=== PATIENT | female | born 1940 | race African-American/Black ===

== ENCOUNTER 2017-08-06 20:46 | Inpatient (IN) | payer OTHER ==
[~2017-08-06] VITALS: Ht 157.5 cm; Wt 120.0 kg
[2017-08-06] MEDS ORDERED: IBUP-2070 PO (21:09)
[2017-08-06] MEDS ORDERED: ATEN100T PO (21:09)
[2017-08-06] MEDS ORDERED: ASPI81 PO (21:09)
[2017-08-06] MEDS ORDERED: HYDR25TA PO (21:09)
[2017-08-06] MEDS ORDERED: BENA20 PO (21:09)
[2017-08-06 21:41] LABS: BASOPHILS % (AUTO) 1.1 % (0.0-2.0); HEMATOCRIT 38.3 % (36-46); HEMOGLOBIN 12.9 g/dL (12.0-16.0); LYMPHOCYTES # (AUTO) 3.5 K/uL (1.0-4.8); LYMPHOCYTES % (AUTO) 43.3 % (22.0-44.0); MEAN CORPUSCULAR HEMOGLOBIN 30.3 pg (26.0-34.0); MEAN CORPUSCULAR HGB CONC 33.6 G/dL (31.0-37.0); MEAN CORPUSCULAR VOLUME 90 fL (80-100); MONOCYTES # (AUTO) 0.5 K/uL (0.1-1.0); MONOCYTES % (AUTO) 6.7 % (2.0-9.0); NEUTROPHILS # (AUTO) 3.9 K/uL (1.8-7.7); NEUTROPHILS % (AUTO) 47.9 % (40.0-70.0); PLATELET COUNT (AUTO) 256 K/uL (150-450); RED BLOOD CELL COUNT(AUTO) 4.25 MIL/uL (4.00-5.20); RED CELL DISTRIBUTION WIDTH 15.4 % (11.5-14.5); WHITE BLOOD COUNT (AUTO) 8.1 K/uL (4.5-11.0)
[2017-08-06 21:53] LABS: ANION GAP 8 mmol/L (8-16); CALCIUM, TOTAL 9.2 mg/dL (8.8-10.5); CARBON DIOXIDE 30 mmol/L (22-29); CHLORIDE 98 mmol/L (98-107); CREATININE 0.85 mg/dL (0.60-1.30); GLOMERULAR FILTR. RATE CALC > 60 mL/min (>60); POTASSIUM 3.4 mmol/L (3.5-5.1); SODIUM SERUM 136 mmol/L (136-145); UREA NITROGEN, BLOOD 15 mg/dL (7-18)
[2017-08-06] MEDS ORDERED: ASPIRIN 81 MG CHEWABLE TABLET PO ONE (22:00)
[2017-08-06 22:01] LABS: ALANINE AMINOTRANSFERASE 19 U/L (12-78); ALBUMIN 3.5 g/dL (3.4-5.0); ASPARTATE AMINOTRANSFERASE 23 U/L (15-37); BILIRUBIN,TOTAL 0.2 mg/dL (0.1-1.0); TOTAL PROTEIN, SERUM 8.1 g/dL (6.4-8.2)
[2017-08-06] MEDS ORDERED: NITROGLYCERIN 0.4 MG SUBLINGUAL TABLET #25 SL ONE (22:15)
[2017-08-06] MEDS ORDERED: NITROGLYCERIN 2% (1 GM=INCH) PACKET TP ONE (22:30)
[2017-08-07] VITALS (8 sets, daily range): BP systolic 100–138; BP diastolic 50–75
[2017-08-07] MEDS ORDERED: ONDANSETRON HCL 4 MG/2 ML VIAL IVP PRN (01:15)
[2017-08-07] MEDS ORDERED: MORPHINE SULFATE 2 MG/ML SYRINGE IVP PRN (01:45)
[2017-08-07 05:16] LABS: APPEARANCE,URINE CLOUDY (CLEAR); GLUCOSE, URINE (UA) NEGATIVE (NEGATIVE); KETONES,URINE NEGATIVE (NEGATIVE); LEUKOCYTE ESTERASE ,URINE TRACE (NEGATIVE); OCCULT BLOOD,URINE TRACE (NEGATIVE); PH,URINE 5.5 (5.0-8.0); PROTEIN,URINE NEGATIVE (NEGATIVE)
[2017-08-07 05:40] LABS: SQUAMOUS EPITHELIAL CELL,UR Moderate /LPF (None Seen)
[2017-08-07 05:59] LABS: BASOPHILS % (AUTO) 0.2 % (0.0-2.0); HEMATOCRIT 37.7 % (36-46); HEMOGLOBIN 12.6 g/dL (12.0-16.0); LYMPHOCYTES # (AUTO) 3.3 K/uL (1.0-4.8); MEAN CORPUSCULAR HEMOGLOBIN 30.1 pg (26.0-34.0); MEAN CORPUSCULAR HGB CONC 33.4 G/dL (31.0-37.0); MEAN CORPUSCULAR VOLUME 90 fL (80-100); MONOCYTES # (AUTO) 0.5 K/uL (0.1-1.0); MONOCYTES % (AUTO) 7.3 % (2.0-9.0); NEUTROPHILS # (AUTO) 3.4 K/uL (1.8-7.7); NEUTROPHILS % (AUTO) 46.5 % (40.0-70.0); PLATELET COUNT (AUTO) 261 K/uL (150-450); RED BLOOD CELL COUNT(AUTO) 4.19 MIL/uL (4.00-5.20); RED CELL DISTRIBUTION WIDTH 15.2 % (11.5-14.5); WHITE BLOOD COUNT (AUTO) 7.3 K/uL (4.5-11.0)
[2017-08-07 06:27] LABS: ANION GAP 10 mmol/L (8-16); CALCIUM, TOTAL 9.1 mg/dL (8.8-10.5); CARBON DIOXIDE 29 mmol/L (22-29); CHLORIDE 101 mmol/L (98-107); CREATININE 0.79 mg/dL (0.60-1.30); GLOMERULAR FILTR. RATE CALC > 60 mL/min (>60); POTASSIUM 3.1 mmol/L (3.5-5.1); SODIUM SERUM 140 mmol/L (136-145); UREA NITROGEN, BLOOD 13 mg/dL (7-18)
[2017-08-07] MEDS: PANTOPRAZOLE SODIUM 40 MG/VIAL IVP SCH (08:07)
[2017-08-07] MEDS: ASPIRIN 81 MG CHEWABLE TABLET PO SCH (08:07)
[2017-08-07] MEDS: BENAZEPRIL HCL 20 MG TABLET PO SCH (08:07)
[2017-08-07] MEDS: ATENOLOL 100 MG TABLET PO SCH (08:13)
[2017-08-07] MEDS ORDERED: HYDROCHLOROTHIAZIDE 25 MG TABLET PO SCH (09:00)
[2017-08-07] MEDS ORDERED: POTASSIUM CHLORIDE 20 MEQ ER TABLET PO PRN (11:00)
[2017-08-07] MEDS ORDERED: POTASSIUM CHL 10 MEQ/WATER 50 ML IV PRN (11:00)
[2017-08-07] MEDS: POTASSIUM CHLORIDE 20 MEQ ER TABLET PO PRN ×2 (11:14→17:34)
[2017-08-07] MEDS: MethylPREDNISolone SOD SUCC 125 MG/2 ML VIAL IVP SCH ×2 (15:53→23:55)
[2017-08-08 00:39] VITALS: BP 133/89
[2017-08-08 04:20] VITALS: BP 143/75
[2017-08-08 06:20] LABS: BASOPHILS % (AUTO) 0.1 % (0.0-2.0); EOSINOPHILS % (AUTO) 0 % (1.0-6.0); HEMATOCRIT 38.1 % (36-46); HEMOGLOBIN 12.7 g/dL (12.0-16.0); LYMPHOCYTES # (AUTO) 1.6 K/uL (1.0-4.8); LYMPHOCYTES % (AUTO) 24.4 % (22.0-44.0); MEAN CORPUSCULAR HEMOGLOBIN 30.3 pg (26.0-34.0); MEAN CORPUSCULAR HGB CONC 33.5 G/dL (31.0-37.0); MEAN CORPUSCULAR VOLUME 91 fL (80-100); MONOCYTES % (AUTO) 0.7 % (2.0-9.0); NEUTROPHILS % (AUTO) 74.8 % (40.0-70.0); PLATELET COUNT (AUTO) 268 K/uL (150-450); RED CELL DISTRIBUTION WIDTH 15.5 % (11.5-14.5); WHITE BLOOD COUNT (AUTO) 6.7 K/uL (4.5-11.0)
[2017-08-08 07:02] LABS: ALANINE AMINOTRANSFERASE 19 U/L (12-78); ALBUMIN 3.2 g/dL (3.4-5.0); ANION GAP 9 mmol/L (8-16); ASPARTATE AMINOTRANSFERASE 23 U/L (15-37); BILIRUBIN,TOTAL 0.3 mg/dL (0.1-1.0); CALCIUM, TOTAL 9.2 mg/dL (8.8-10.5); CARBON DIOXIDE 26 mmol/L (22-29); CHLORIDE 101 mmol/L (98-107); CREATININE 0.85 mg/dL (0.60-1.30); GLOMERULAR FILTR. RATE CALC > 60 mL/min (>60); POTASSIUM 4.1 mmol/L (3.5-5.1); SODIUM SERUM 136 mmol/L (136-145); TOTAL PROTEIN, SERUM 7.9 g/dL (6.4-8.2); UREA NITROGEN, BLOOD 10 mg/dL (7-18)
[2017-08-08 07:46] VITALS: BP 127/54
[2017-08-08] MEDS: MethylPREDNISolone SOD SUCC 125 MG/2 ML VIAL IVP SCH (08:59)
[2017-08-08] MEDS: PANTOPRAZOLE SODIUM 40 MG/VIAL IVP SCH (08:59)
[2017-08-08] MEDS: ASPIRIN 81 MG CHEWABLE TABLET PO SCH (08:59)
[2017-08-08] MEDS: BENAZEPRIL HCL 20 MG TABLET PO SCH (09:00)
[2017-08-08] MEDS: ATENOLOL 100 MG TABLET PO SCH (09:00)
[2017-08-08 11:10] VITALS: BP 121/68
[2017-08-08] MEDS ORDERED: PRED20 PO (11:18)
[2017-08-08] MEDS ORDERED: PRED5 PO (11:19)
[2017-08-08] MEDS ORDERED: PRED10 PO (11:19)
== END 2017-08-08 14:15 | disposition home or self-care (01) | DRG 292 ==
LOC: EMS 20:49 → EDBD 20:49 → 5S 23:12
PROVIDERS: ADMIT Internal Medicine; ATTEND Internal Medicine
DX: I11.0 Hypertensive heart disease with heart failure (principal); J98.11 Atelectasis; Z68.42 Body mass index [BMI] 45.0-49.9, adult; R07.89 Other chest pain; I25.119 Atherosclerotic heart disease of native coronary artery with unspecified angina pectoris; I50.31 Acute diastolic (congestive) heart failure; E66.9 Obesity, unspecified; E87.6 Hypokalemia; D86.9 Sarcoidosis, unspecified; E78.00 Pure hypercholesterolemia, unspecified; E78.5 Hyperlipidemia, unspecified; M77.9 Enthesopathy, unspecified; Z79.82 Long term (current) use of aspirin; Z88.0 Allergy status to penicillin; Z88.8 Allergy status to other drugs, medicaments and biological substances
CPT/HCPCS: 83735; 84132; 93005; 93306; 99285; C9113; J2930

== ENCOUNTER 2020-04-24 05:21 | Inpatient (IN) | payer OTHER ==
[~2020-04-24] VITALS: Ht 160 cm; Wt 119.0 kg
[~2020-04-24 05:21] MED LIST: ASPI-728 PO; ATEN100T92 PO; BENA20TA11 PO; HYDR-1475 PO; IBUP-2070 PO; PRED10 PO; PRED20 PO; PRED5 PO
[2020-04-24] MEDS ORDERED: ONDANSETRON HCL 4 MG/2 ML VIAL IVP ONE (05:45)
[2020-04-24] MEDS ORDERED: SODIUM CHLORIDE 0.9% 1,000 ML IV ONE (05:45)
[2020-04-24 05:48] LABS: BASOPHILS % (AUTO) 0.6 % (0.0-2.0); HEMATOCRIT 37.9 % (36-46); HEMOGLOBIN 12.8 g/dL (12.0-16.0); LYMPHOCYTES # (AUTO) 4.5 K/uL (1.0-4.8); LYMPHOCYTES % (AUTO) 51.2 % (22.0-44.0); MEAN CORPUSCULAR HEMOGLOBIN 30.3 pg (26.0-34.0); MEAN CORPUSCULAR HGB CONC 33.7 G/dL (31.0-37.0); MEAN CORPUSCULAR VOLUME 90 fL (80-100); MONOCYTES # (AUTO) 0.4 K/uL (0.1-1.0); MONOCYTES % (AUTO) 4.1 % (2.0-9.0); NEUTROPHILS # (AUTO) 3.8 K/uL (1.8-7.7); NEUTROPHILS % (AUTO) 43.1 % (40.0-70.0); PLATELET COUNT (AUTO) 255 K/uL (150-450); RED BLOOD CELL COUNT(AUTO) 4.21 MIL/uL (4.00-5.20)
[2020-04-24 06:03] LABS: CREATININE 1.1 mg/dL (0.60-1.30)
[2020-04-24 06:05] LABS: POTASSIUM 2.9 mmol/L (3.5-5.1)
[2020-04-24 06:08] LABS: ALBUMIN 3.1 g/dL (3.4-5.0); BILIRUBIN,TOTAL 0.3 mg/dL (0.1-1.0); CALCIUM, TOTAL 9.1 mg/dL (8.8-10.5); TOTAL PROTEIN, SERUM 7.7 g/dL (6.4-8.2)
[2020-04-24] MEDS ORDERED: POTASSIUM CHLORIDE 20 MEQ ER TABLET PO ONE (06:45)
[2020-04-24] MEDS ORDERED: MAGNESIUM CHLORIDE 64 MG ER TABLET PO ONE (06:45)
[2020-04-24] MEDS ORDERED: 0.9% SODIUM CHLORIDE 10 ML SYRINGE IVP PRN (07:00)
[2020-04-24] MEDS ORDERED: ACETAMINOPHEN 325 MG TABLET PO PRN ×2 (07:00→09:30)
[2020-04-24] MEDS ORDERED: ONDANSETRON HCL 4 MG/2 ML VIAL IVP PRN (07:00)
[2020-04-24 08:31] VITALS: BP 143/74
[2020-04-24] MEDS ORDERED: POTASSIUM CHL 10 MEQ/WATER 50 ML IV PRN (09:30)
[2020-04-24] MEDS ORDERED: POTASSIUM CHLORIDE 20 MEQ ER TABLET PO PRN (09:30)
[2020-04-24 11:16] VITALS: BP 168/97
[2020-04-24] MEDS: ASPIRIN 81 MG CHEWABLE TABLET PO SCH (11:23)
[2020-04-24] MEDS: BENAZEPRIL HCL 20 MG TABLET PO SCH (11:24)
[2020-04-24] MEDS: HEPARIN SODIUM,PORCINE 5,000 UNITS/ML VIAL SQ SCH ×2 (15:44→23:47)
[2020-04-24 15:54] VITALS: BP 152/83
[2020-04-24 19:17] VITALS: BP 130/87
[2020-04-24] MEDS: DOCUSATE SODIUM 100 MG CAPSULE PO SCH (21:00)
[2020-04-24 23:49] VITALS: BP 142/82
[2020-04-25 04:08] VITALS: BP 148/63
[2020-04-25 07:45] VITALS: BP 127/70
[2020-04-25] MEDS: HEPARIN SODIUM,PORCINE 5,000 UNITS/ML VIAL SQ SCH (08:09)
[2020-04-25] MEDS: ASPIRIN 81 MG CHEWABLE TABLET PO SCH (08:09)
[2020-04-25] MEDS: BENAZEPRIL HCL 20 MG TABLET PO SCH (08:09)
[2020-04-25] MEDS: DOCUSATE SODIUM 100 MG CAPSULE PO SCH (08:10)
[2020-04-25] MEDS ORDERED: FAMOTIDINE 20 MG TABLET PO SCH (09:00)
[2020-04-25 11:06] VITALS: BP 126/67
[2020-04-25 11:59] LABS: APPEARANCE,URINE CLEAR (CLEAR); BILIRUBIN,URINE NEGATIVE (NEGATIVE); GLUCOSE, URINE (UA) NEGATIVE (NEGATIVE); KETONES,URINE NEGATIVE (NEGATIVE); LEUKOCYTE ESTERASE ,URINE NEGATIVE (NEGATIVE); NITRATE,URINE NEGATIVE (NEGATIVE); OCCULT BLOOD,URINE NEGATIVE (NEGATIVE); PROTEIN,URINE NEGATIVE (NEGATIVE); UROBILINOGEN,URINE 0.2 mg/dL (<=1.0)
== END 2020-04-25 13:35 | disposition home or self-care (01) | DRG 312 ==
LOC: EMS 05:21 → 5S 06:30
PROVIDERS: ADMIT Internal Medicine; ATTEND Internal Medicine
DX: R55 Syncope and collapse (principal); Z68.42 Body mass index [BMI] 45.0-49.9, adult; D86.9 Sarcoidosis, unspecified; E66.01 Morbid (severe) obesity due to excess calories; E78.00 Pure hypercholesterolemia, unspecified; E87.6 Hypokalemia; I10 Essential (primary) hypertension; R11.2 Nausea with vomiting, unspecified; Z88.0 Allergy status to penicillin; Z88.8 Allergy status to other drugs, medicaments and biological substances; Z79.899 Other long term (current) drug therapy; Z79.82 Long term (current) use of aspirin
CPT/HCPCS: 70450; 83036; 83735; 84132; 93005; J1644; J2405; J7030; 36415-L1; 36415-TC; 71045-TC; 81003-TC

== ENCOUNTER 2020-05-25 18:21 | Emergency (ER) | payer OTHER ==
[~2020-05-25] VITALS: Ht 157.5 cm; Wt 118.9 kg
[~2020-05-25 18:21] MED LIST changes: -ATEN100T92 PO; -HYDR-1475 PO; -IBUP-2070 PO; -PRED10 PO; -PRED20 PO; -PRED5 PO
[2020-05-25 18:58] LABS: BASOPHILS % (AUTO) 0.5 % (0.0-2.0); EOSINOPHILS % (AUTO) 0.2 % (1.0-6.0); HEMATOCRIT 39.9 % (36-46); HEMOGLOBIN 12.9 g/dL (12.0-16.0); LYMPHOCYTES # (AUTO) 1.7 K/uL (1.0-4.8); LYMPHOCYTES % (AUTO) 26.7 % (22.0-44.0); MEAN CORPUSCULAR HEMOGLOBIN 29.3 pg (26.0-34.0); MEAN CORPUSCULAR HGB CONC 32.2 G/dL (31.0-37.0); MEAN CORPUSCULAR VOLUME 91 fL (80-100); MONOCYTES # (AUTO) 0.4 K/uL (0.1-1.0); MONOCYTES % (AUTO) 6.5 % (2.0-9.0); NEUTROPHILS # (AUTO) 4.1 K/uL (1.8-7.7); NEUTROPHILS % (AUTO) 66.1 % (40.0-70.0); PLATELET COUNT (AUTO) 279 K/uL (150-450); RED BLOOD CELL COUNT(AUTO) 4.39 MIL/uL (4.00-5.20); RED CELL DISTRIBUTION WIDTH 16.1 % (11.5-14.5)
[2020-05-25] MEDS ORDERED: MECLIZINE HCL 25 MG TABLET PO ONE (19:00)
[2020-05-25 19:06] LABS: ANION GAP 7 mmol/L (8-16); CALCIUM, TOTAL 9.7 mg/dL (8.8-10.5); CARBON DIOXIDE 29 mmol/L (22-29); CHLORIDE 105 mmol/L (98-107); CREATININE 0.81 mg/dL (0.60-1.30); GLOMERULAR FILTR. RATE CALC > 60 mL/min (>60); GLUCOSE,RANDOM 102 mg/dL (70-110); POTASSIUM 3.8 mmol/L (3.5-5.1); SODIUM SERUM 141 mmol/L (136-145); UREA NITROGEN, BLOOD 11 mg/dL (7-18)
[2020-05-25 19:12] LABS: ALANINE AMINOTRANSFERASE 17 U/L (12-78); ALBUMIN 3.3 g/dL (3.4-5.0); ALKALINE PHOSPHATASE 91 U/L (46-116); ASPARTATE AMINOTRANSFERASE 23 U/L (15-37); BILIRUBIN,TOTAL 0.3 mg/dL (0.1-1.0); TOTAL PROTEIN, SERUM 7.6 g/dL (6.4-8.2)
[2020-05-25] MEDS ORDERED: BENAZEPRIL HCL 20 MG TABLET PO ONE (20:45)
[2020-05-25 20:51] VITALS: BP 123/87
== END 2020-05-25 21:42 | disposition home or self-care (01) ==
LOC: EMS 18:22
DX: R42 Dizziness and giddiness (principal); I10 Essential (primary) hypertension; E78.00 Pure hypercholesterolemia, unspecified
CPT/HCPCS: 70450; 93005